=== PATIENT | female | born 1975 | race Caucasian/White ===

== ENCOUNTER → 2020-05-18 | Outpatient (CLI) | payer OTHER ==
--- NOTE | 2020-05-18 14:31 | CARD ---
MR#: [id number] Date of Study: 05/18/2020 Ordering Physician: SARAVANAN MINER, Referring Physician: SARAVANAN MINER, Tech: Fabby Cortes [facility] APPROVED REPORT EXAM: Two-dimensional and M-mode echocardiogram with Doppler and color Doppler. Other Information Quality : Good INDICATION Dyspnea 2D DIMENSIONS RVDd2.5 (2.9-3.5cm)Left Atrium(2D)3.4 (1.6-4.0cm) IVSd0.8 (0.7-1.1cm)Aortic Root(2D)2.1 (2.0-3.7cm) LVDd5.2 (3.9-5.9cm)LVOT Diameter2.0 (1.8-2.4cm) PWd0.9 (0.7-1.1cm)LVDs3.8 (2.5-4.0cm) FS (%) 27.3 %SV69.0 ml Aortic Valve AoV Peak Guille.133.8cm/sAoV VTI26.4cm AO Peak GR.7.2mmHgLVOT Peak Guille.113.7cm/s LVOT VTI 19.98cmAO Mean GR.4mmHg ROEL (VMAX)2.69ak7HLZ (VTI)2.45cm2 Mitral Valve MV E Mzrzkhds12.8cm/sMV DECEL [id number] MV A Xnidkpls69.9cm/sMV XXV53zx E/A Ratio1.6MVA (PHT)3.98cm2 TDI E/Lateral E'18.8E/Medial E'9.1 Pulmonary Vein S1 Ywwfumpv04.1cm/sD2 Njyvgdoh74.3cm/s LEFT VENTRICLE The left ventricle is normal size. There is normal left ventricular wall thickness. Left ventricle sy stolic function is low normal. The Ejection Fraction is 50-55%. There is normal LV segmental wall mot ion. The left ventricular diastolic function and filling is normal for age. RIGHT VENTRICLE The right ventricle is normal size. The right ventricular systolic function is normal. ATRIA The left atrium size is normal. The right atrium size is normal. The interatrial septum is intact wit h no evidence for an atrial septal defect or patent foramen ovale as noted on 2-D or Doppler imaging. AORTIC VALVE The aortic valve is normal in structure and function. Doppler and Color Flow revealed no significant aortic regurgitation. There is no significant aortic valvular stenosis. MITRAL VALVE The mitral valve is normal in structure and function. There is no evidence of mitral valve prolapse. There is no mitral valve stenosis. Doppler and Color-flow revealed trace to mild mitral regurgitation . TRICUSPID VALVE The tricuspid valve is normal in structure and function. Doppler and Color Flow revealed no tricuspid valve regurgitation noted. There is no tricuspid valve stenosis. PULMONIC VALVE The pulmonary valve is normal in structure and function. Doppler and Color Flow revealed trace pulmon ic valvular regurgitation. There is no pulmonic valvular stenosis. GREAT VESSELS The aortic root is normal in size. The ascending aorta is normal in size. The IVC is normal in size a nd collapses >50% with inspiration. PERICARDIAL EFFUSION There is no evidence of significant pericardial effusion. Critical Notification Critical Value: No <Conclusion> The left ventricle is normal size. Left ventricle systolic function is low normal. The Ejection Fraction is 50-55%. Doppler and Color Flow revealed no significant aortic regurgitation. There is no significant aortic valvular stenosis. Doppler and Color-flow revealed trace to mild mitral regurgitation. Doppler and Color Flow revealed no tricuspid valve regurgitation noted. Signed by : Saravanan Miner MD Electronically Approved : 05/18/2020 14:31:25
== END ==
LOC: ECHO 13:39
PROVIDERS: ATTEND Internal Medicine Cardiovascular Disease
DX: I34.0 Nonrheumatic mitral (valve) insufficiency (principal)
CPT/HCPCS: 93306

== ENCOUNTER 2020-07-01 21:49 | Emergency (ER) | payer OTHER ==
[~2020-07-01] VITALS: Ht 167.6 cm; Wt 77.2 kg
[2020-07-01 22:25] VITALS: BP 102/71
[2020-07-01] MEDS ORDERED: KETOROLAC 60 MG/2 ML VIAL. IM ONE (23:00)
[2020-07-01] MEDS ORDERED: NAPR-514 PO (23:27)
[2020-07-01] MEDS ORDERED: ORPH100T PO (23:27)
--- NOTE | 2020-07-01 23:28 | ED.ADGEN ---
Past Medical History Past Medical History: No Pertinent History Past Surgical History: No Surgical History Smoking Status: Former Smoker Alcohol Use: Rarely General Adult EDM: Chief Complaint: MECHANICAL FALL HPI: HPI: Patient is a 44 year old female, accompanied by her , who presents emergency department with complaints of right-sided low back pain after a fall from standing today. Patient reports she was seen at [facility] and had x-rays done. They told her that there were no fractures. While she was at the hospital they gave her some medicine and told her to take Tylenol and ibuprofen as needed for pain. Patient states that the pain has become worse she denies any saddle anesthesia, loss of bowel or bladder control, or radiation of the pain. She states that her low back hurts so bad she cannot get comfortable. She currently rates pain 10 out of 10 on the pain scale, she denies any numbness, tingling, or weakness of her lower extremities. She states that she has been taking Tylenol every 6 hours at home with no relief of her pain. Review of Systems: Review of Systems: Complete ROS is negative unless otherwise noted in HPI. Current Medications: Current Medications Medications (Trade) Dose Ordered Sig/Christopher Start Time Stop Time Status Last Admin Dose Admin Ketorolac Tromethamine (Toradol 30mg Vial) 30 mg 1X ONCE 07/01/20 23:30 07/01/20 23:31 Cancel Ketorolac Tromethamine (Toradol Im) 60 mg 1X ONCE 07/01/20 23:00 07/01/20 23:03 DC 07/01/20 23:10 60 MG Morphine Sulfate (Morphine Sulfate) 5 mg 1X ONCE 07/01/20 23:30 07/01/20 23:31 DC 07/01/20 23:10 5 MG Orphenadrine Citrate (Norflex) 60 mg 1X ONCE 07/01/20 23:30 07/01/20 23:31 DC 07/01/20 23:09 60 MG Allergies: Allergies: Allergies Coded Allergies Type Severity Reaction Last Updated Verified Iodine and Iodide Containing Produc Allergy Severe 07/01/20 Yes Sulfa (Sulfonamide Antibiotics) Allergy Intermediate 07/01/20 Yes amoxicillin Allergy Intermediate 07/01/20 Yes Physical Exam: PE: See Above Constitutional: Well developed, well nourished, no acute distress, non-toxic appearance. [] HENT: Normocephalic, atraumatic, bilateral external ears normal, nose normal. [] Eyes: PERRLA, EOMI, conjunctiva normal, no discharge. [] Neck: Normal range of motion, no stridor. [] Cardiovascular:Heart rate regular rhythm Lungs & Thorax: Respirations even and unlabored, no retractions, no respiratory distress Back: No bony tenderness, right lumbar paraspinal tenderness to palpation, spasm noted, negative straight leg lift Skin: Warm, dry, no erythema, no rash. [] Extremities: No cyanosis, ROM intact, no edema. [] Neurologic: Alert and oriented X 3, no focal deficits noted. [] Psychologic: Affect normal, judgement normal, mood normal. [] Current Patient Data: Vital Signs: Vital Signs Date Time Temp Pulse Resp B/P (MAP) Pulse Ox O2 Delivery O2 Flow Rate FiO2 07/01/20 23:10 98 Room Air 07/01/20 22:25 97.9 77 18 102/71 (81) 97.9 EKG: EKG: [] Heart Score: Risk Factors: Risk Factors: DM, Current or recent (<one month) smoker, HTN, HLP, family history of CAD, obesity. Risk Scores: Score 0 - 3: 2.5% MACE over next 6 weeks - Discharge Home Score 4 - 6: 20.3% MACE over next 6 weeks - Admit for Clinical Observation Score 7 - 10: 72.7% MACE over next 6 weeks - Early Invasive Strategies Radiology/Procedures: Radiology/Procedures: [] Course & Med Decision Making: Course & Med Decision Making Pertinent Labs and Imaging studies reviewed. (See chart for details) 44-year-old female presents emergency department with complaints of right low back pain after a fall from standing this morning. Patient was given 60 mg of IM Toradol, 60 mg of IM Norflex, and 5 mg of IM morphine. She reported some benefit from these medications prior to discharge. Prescriptions written for naproxen and orphenadrine. Patient was encouraged to apply ice to sore areas for the first 48 hours then apply heat or ice as needed for comfort. Activity as tolerated. Recommend follow-up with primary care doctor this week if symptoms persist, return to ER symptoms worsen. Patient verbalized an understanding of home care, medications, follow-up, and return to ED instructions and was in agreement with the plan of care. [] Bear Disclaimer: Bear Disclaimer: This electronic medical record was generated, in whole or in part, using a voice recognition dictation system. Departure Departure Impression: Primary Impression: Strain of lumbar paraspinal muscle Additional Impression: Acute low back pain without sciatica Disposition: 01 DC HOME SELF CARE/HOMELESS Condition: STABLE Referrals: LORRAINE AVILA (PCP) Patient Instructions: Low Back Strain with [facility] Additional Instructions: Fill the prescription(s) and use as directed. Apply ice to sore areas for 10 to 15 minutes every hour while awake to the night and tomorrow then apply ice or heat as needed for comfort. Activity as tolerated. Follow up with your primary care doctor this week if symptoms persist, return to the ER if symptoms worsen. Scripts Naproxen (NAPROXEN) 500 Mg Tablet 1 TAB PO BID PRN for PAIN for 10 Days, #20 TAB 0 Refills Prov: HOME OJEDA APRN 07/01/20 Orphenadrine Citrate (ORPHENADRINE CITRATE) 100 Mg Tablet.er 1 TAB PO BID PRN for PAIN for 10 Days, #20 TAB 0 Refills Prov: HOME OJEDA APRN 07/01/20 Problem Qualifiers Primary Impression: Strain of lumbar paraspinal muscle Encounter type: initial encounter Qualified Codes: S39.012A - Strain of muscle, fascia and tendon of lower back, initial encounter Additional Impression: Acute low back pain without sciatica Back pain laterality: right Qualified Codes: M54.5 - Low back pain HOME OJEDA APRN Jul 01, 2020 23:28
[2020-07-01] MEDS ORDERED: KETOROLAC 30 MG/ML VIAL. IV ONE (23:30)
[2020-07-01] MEDS ORDERED: ORPHENADRINE CITRATE 60 MG/2 ML VIAL. IM ONE (23:30)
[2020-07-01] MEDS ORDERED: MORPHINE SULFATE 10 MG/ML VIAL. IM ONE (23:30)
== END 2020-07-01 23:34 | disposition home or self-care (01) ==
LOC: ER 21:49
DX: S39.012A Strain of muscle, fascia and tendon of lower back, initial encounter (principal); Z87.891 Personal history of nicotine dependence; Z88.1 Allergy status to other antibiotic agents; Z88.2 Allergy status to sulfonamides; Z91.041 Radiographic dye allergy status; W18.39XA Other fall on same level, initial encounter; Y93.89 Activity, other specified; Y92.89 Other specified places as the place of occurrence of the external cause; Y99.8 Other external cause status
CPT/HCPCS: 96372; 99284; J1885; J2270; J2360

== ENCOUNTER → 2021-09-02 | Outpatient (CLI) | payer OTHER ==
[~2021-09-02] MED LIST: NAPR-514 PO; ORPH100T PO
== END ==
LOC: LAB 14:10
PROVIDERS: ATTEND Nurse Practitioner Family
DX: R93.89 Abnormal findings on diagnostic imaging of other specified body structures (principal); R53.1 Weakness
CPT/HCPCS: 36415; 82607; 82746; 83519; 84165; 84443; 86038; 86141; 86255; 84238

== ENCOUNTER 2021-09-18 07:45 | Outpatient (CLI) | payer OTHER ==
[~2021-09-18 07:45] MED LIST changes: +LIDOCAINE 1% Multi-Dose 20 ML VIAL. INJ ONE
[2021-09-18 08:45] VITALS: BP 99/57
[2021-09-18 09:00] VITALS: BP 95/57
[2021-09-18 09:15] VITALS: BP 96/64
[2021-09-18 09:30] VITALS: BP 92/60
--- NOTE | 2021-09-18 09:55 | NUR ---
Discharge Note: VICTOR MANUEL STOCKTON Discharge instructions and discharge home medications reviewed with Patient and a copy given. All questions have been answered and understanding verbalized. The following instructions and handouts were given: lumbar puncture Dressing to back clean and dry Patient discharged to Home or Self Care with Family Member via Wheelchair KATI KIMBALL Addendum: 09/18/21 at 0957 by FREEMAN WASHINGTON RN Amended: Links added.
--- NOTE | 2021-09-18 10:06 | RAD ---
FLUOROSCOPICALLY GUIDED LUMBAR PUNCTURE FOR CSF SAMPLING: Clinical History: Abnormal MRI, left-sided weakness. Procedure: The relative benefits, risks and alternatives to the procedure were discussed and verbal and written informed consent was obtained. The patient was placed prone and slightly oblique on the fluoroscopic table and bony landmarks were u sed to plan for a lumbar puncture. The patient was carefully prepped and draped in a sterile fashion and with local anesthetic and sterile technique, a 22-gauge spinal needle was advanced at the L3 lev el. Clear CSF was seen and approximately 12 cc of clear fluid were aspirated and sent for testing. N eedle was removed with stylet in place. Hemostasis achieved. The procedure was well tolerated and the patient was sent to Recovery in good condition. Total fluoroscopy time for the procedure was 0.4 minutes. 0 fluoroscopic spot images. IMPRESSION: Fluoroscopic guided lumbar puncture. Electronically signed by: Eliseo June MD (09/18/2021 10:04 AM) [id number]
[2021-09-18 10:40] LABS: CSF PROTEIN 35.2 mg/dL (15.0-45.0)
[2021-09-18 10:46] LABS: CSF CLARITY CLEAR; CSF COLOR COLORLESS; CSF RBC COUNT 0 /cmm (Not Established); CSF WBC COUNT 0 /cmm (Not Established)
[2021-09-23 16:14] LABS: ALBUMIN,CSF 16 mg/dL (8-37); ALBUMIN,SERUM 4.1 g/dL (3.8-4.8); CSF IGG INDEX 0.5 (0.0-0.7); IGG,SERUM 1017 mg/dL (586-1602)
== END 2021-09-18 10:00 | disposition home or self-care (01) ==
LOC: RAD 07:45
PROVIDERS: ATTEND Nurse Practitioner Family
DX: R53.1 Weakness (principal); Z79.82 Long term (current) use of aspirin; Z79.899 Other long term (current) drug therapy; Z87.891 Personal history of nicotine dependence; Z98.890 Other specified postprocedural states; Z88.1 Allergy status to other antibiotic agents; Z88.2 Allergy status to sulfonamides; Z91.041 Radiographic dye allergy status; Z72.89 Other problems related to lifestyle
CPT/HCPCS: 36415; 62328; 82787; 82945; 83916; 84157; 87075; 87102; 87252; 89051; J3490; 62270

== ENCOUNTER 2021-09-20 19:35 | Observation (INO) | payer OTHER ==
[~2021-09-20] VITALS: Ht 160 cm; Wt 78.1 kg
[~2021-09-20 19:35] MED LIST changes: -LIDOCAINE 1% Multi-Dose 20 ML VIAL. INJ ONE
--- NOTE | 2021-09-20 20:57 | ED.ADGEN ---
Past Medical History Past Medical History: No Pertinent History Past Surgical History: Other Additional Past Surgical Histo: bilat leg fasciotmy Smoking Status: Former Smoker Alcohol Use: Rarely General Adult EDM: Chief Complaint: HEADACHE HPI: HPI: Patient is a 45 year old female coming in for headaches to worsen with the past 2 days. Patient had an LP done here 2 days ago to rule out MS. Patient recently had a stroke and has some ataxia deficits which she says are "99% improved". Patient says she has a headache that is around the top of her head. Has had some photophobia, denies any vision changes nausea or vomiting. Patient denies any history of headaches. States that headache is better with laying down and worse with sitting up. Denies any fever chills, neck rigidity, hearing loss or tinnitus Review of Systems: Review of Systems: All other systems within normal limits except for as noted in the HPI Current Medications: Current Medications Medications (Trade) Dose Ordered Sig/Christopher Start Time Stop Time Status Last Admin Dose Admin Caffeine Citrated (Caffeine Citrate) 500 mg 1X ONCE 09/20/21 21:00 09/20/21 21:03 DC Caffeine Citrated 60 mg/Dextrose 103 ml @ 206 mls/hr 1X ONCE 09/20/21 21:30 09/20/21 21:59 DC 09/20/21 21:33 206 MLS/HR Fentanyl Citrate (Fentanyl 2ml Vial) 75 mcg 1X ONCE 09/20/21 21:30 09/20/21 21:31 DC 09/20/21 22:12 75 MCG Sodium Chloride 1,000 ml @ 1,000 mls/hr 1X ONCE 09/20/21 21:00 09/20/21 21:59 DC 09/20/21 22:14 1,000 MLS/HR Allergies: Allergies: Allergies Coded Allergies Type Severity Reaction Last Updated Verified Iodinated Contrast Media Allergy Severe 09/20/21 Yes Sulfa (Sulfonamide Antibiotics) Allergy Intermediate 07/01/20 Yes amoxicillin Allergy Intermediate 07/01/20 Yes Physical Exam: PE: Constitutional: Well developed, well nourished, no acute distress, non-toxic appearance. [] HENT: Normocephalic, atraumatic, bilateral external ears normal, nose normal. [] Eyes: PERRLA, conjunctiva normal, no discharge. [Extraocular intact] Neck: No rigidity, supple, no stridor. [] Cardiovascular: Regular rate and rhythm, brisk cap refill [] Lungs & Thorax: Non labored symmetric respirations, no tachypnea or respiratory distress [] Abdomen: Soft, nondistended. Skin: Warm, dry, no erythema, no rash. [] Back: Unremarkable Extremities: No deformities, range of motion grossly intact, no lower extremity edema [] Neurologic: Alert and oriented X 3, no focal deficits noted. [] Psychologic: Affect normal, judgement normal, mood normal. [] Current Patient Data: Labs: Laboratory Tests Test 09/20/21 21:20 White Blood Count 9.7 x10^3/uL (4.0-11.0) Red Blood Count 4.21 x10^6/uL (3.50-5.40) Hemoglobin 12.6 g/dL (12.0-15.5) Hematocrit 37.6 % (36.0-47.0) Mean Corpuscular Volume 89 fL (79-100) Mean Corpuscular Hemoglobin 30 pg (25-35) Mean Corpuscular Hemoglobin Concent 34 g/dL (31-37) Red Cell Distribution Width 13.1 % (11.5-14.5) Platelet Count 219 x10^3/uL (140-400) Neutrophils (%) (Auto) 78 % (31-73) H Lymphocytes (%) (Auto) 14 % (24-48) L Monocytes (%) (Auto) 6 % (0-9) Eosinophils (%) (Auto) 1 % (0-3) Basophils (%) (Auto) 1 % (0-3) Neutrophils # (Auto) 7.5 x10^3/uL (1.8-7.7) Lymphocytes # (Auto) 1.4 x10^3/uL (1.0-4.8) Monocytes # (Auto) 0.6 x10^3/uL (0.0-1.1) Eosinophils # (Auto) 0.1 x10^3/uL (0.0-0.7) Basophils # (Auto) 0.1 x10^3/uL (0.0-0.2) Sodium Level 140 mmol/L (136-145) Potassium Level 3.9 mmol/L (3.5-5.1) Chloride Level 105 mmol/L (98-107) Carbon Dioxide Level 25 mmol/L (21-32) Anion Gap 10 (6-14) Blood Urea Nitrogen 14 mg/dL (7-20) Creatinine 0.9 mg/dL (0.6-1.0) Estimated GFR (Cockcroft-Gault) 68.3 BUN/Creatinine Ratio 16 (6-20) Glucose Level 103 mg/dL (70-99) H Calcium Level 8.5 mg/dL (8.5-10.1) Total Bilirubin 0.1 mg/dL (0.2-1.0) L Aspartate Amino Transferase (AST) 14 U/L (15-37) L Alanine Aminotransferase (ALT) 35 U/L (14-59) Alkaline Phosphatase 101 U/L (46-116) Total Protein 7.2 g/dL (6.4-8.2) Albumin 3.4 g/dL (3.4-5.0) Albumin/Globulin Ratio 0.9 (1.0-1.7) L Laboratory Tests 09/20/21 21:20 Laboratory Tests 09/20/21 21:20 Vital Signs: Vital Signs Date Time Temp Pulse Resp B/P (MAP) Pulse Ox O2 Delivery O2 Flow Rate FiO2 09/20/21 22:25 64 20 99 09/20/21 22:12 Room Air 09/20/21 20:23 97.9 108/72 (84) 97.9 EKG: EKG: [] Heart Score: C/O Chest Pain: No Risk Factors: Risk Factors: DM, Current or recent (<one month) smoker, HTN, HLP, family history of CAD, obesity. Risk Scores: Score 0 - 3: 2.5% MACE over next 6 weeks - Discharge Home Score 4 - 6: 20.3% MACE over next 6 weeks - Admit for Clinical Observation Score 7 - 10: 72.7% MACE over next 6 weeks - Early Invasive Strategies Radiology/Procedures: Radiology/Procedures: [facility] [address] [place] [address] IMAGING REPORT Signed PATIENT: VICTOR MANUEL STOCKTON ACCOUNT: [id number] : 1975 LOCATION: ER AGE: 45 SEX: F EXAM STATUS: REG ER ORD. PHYSICIAN: AYANNA ORELLANA MD REASON: headache PROCEDURE: CT HEAD WO CONTRAST CT HEAD/BRAIN WO History: Reason: headache / Spl. Instructions: / History: Comparison: None. Technique: Noncontrast CT imaging was performed of the head. Exposure: One or more of the following individualized dose reduction techniques were utilized for this examination: 1. Automated exposure control 2. Adjustment of the mA and/or kV according to patient size 3. Use of iterative reconstruction technique. Findings: No intracranial hemorrhage. No mass effect. No hydrocephalus. Extra-axial spaces are unremarkable. Imaged orbits are unremarkable. Imaged paranasal sinuses and mastoid air cells are clear. No acute calvarial fracture. Impression: 1. No acute intracranial abnormality. Electronically signed by: Rowdy Gonzalez DO (09/20/2021 11:50 PM) [facility] DICTATED and SIGNED BY: ROWDY GONZALEZ DO DATE: 09/20/21 [id number] [] Course & Med Decision Making: Course & Med Decision Making Pertinent Labs and Imaging studies reviewed. (See chart for details) Patient feeling better but still having worsening headache when standing up. Discussed with MOTION AND TIME STUDY TEACHER on-call, recommends having patient lay supine and they will see the patient with anesthesia in the morning to evaluate whether a blood patch is necessary. [] Dragon Disclaimer: Bear Disclaimer: This electronic medical record was generated, in whole or in part, using a voice recognition dictation system. Departure Departure Impression: Primary Impression: Post lumbar puncture headache Disposition: ADMITTED INPATIENT Admitting Physician: HIMNael Condition: STABLE Referrals: HEMAL MORRIS (PCP) AYANNA ORELLANA MD Sep 20, 2021 20:57
[2021-09-20] MEDS ORDERED: CAFFEINE CITRATE 60 MG/3 ML IVP ONE (21:00)
[2021-09-20] MEDS ORDERED: IV NORMAL SALINE 1000ML BAG 1,000 ML IV ONE (21:00)
[2021-09-20] MEDS ORDERED: fentaNYL PF VIAL 100 MCG/2 ML VIAL IVP ONE (21:30)
[2021-09-20] MEDS ORDERED: CAFFEINE CITRATE IVP ONE (21:30)
[2021-09-20] MEDS ORDERED: DEXTROSE 5% IVP ONE (21:30)
[2021-09-20 21:34] LABS: BASO # 0.1 x10^3/uL (0.0-0.2); BASO % 1 % (0-3); EOS # 0.1 x10^3/uL (0.0-0.7); EOS % 1 % (0-3); HEMATOCRIT 37.6 % (36.0-47.0); HEMOGLOBIN 12.6 g/dL (12.0-15.5); LYMPH # 1.4 x10^3/uL (1.0-4.8); LYMPH % 14 % (24-48); MEAN CORPUSCULAR HEMOGLOBIN 30 pg (25-35); MEAN CORPUSCULAR HGB CONC 34 g/dL (31-37); MEAN CORPUSCULAR VOLUME 89 fL (79-100); MONO # 0.6 x10^3/uL (0.0-1.1); MONO % 6 % (0-9); NEUT # 7.5 x10^3/uL (1.8-7.7); NEUT % 78 % (31-73); PLATELET COUNT 219 x10^3/uL (140-400); RED BLOOD COUNT 4.21 x10^6/uL (3.50-5.40); RED CELL DISTRIBUTION WIDTH 13.1 % (11.5-14.5); WHITE BLOOD COUNT 9.7 x10^3/uL (4.0-11.0)
[2021-09-20 21:43] LABS: CALCIUM 8.5 mg/dL (8.5-10.1); CREATININE 0.9 mg/dL (0.6-1.0); GFR 68.3; POTASSIUM 3.9 mmol/L (3.5-5.1)
[2021-09-20 21:49] LABS: ALBUMIN 3.4 g/dL (3.4-5.0); ALBUMIN/GLOBULIN RATIO 0.9 (1.0-1.7); TOTAL BILIRUBIN 0.1 mg/dL (0.2-1.0); TOTAL PROTEIN 7.2 g/dL (6.4-8.2)
--- NOTE | 2021-09-20 23:52 | RAD ---
CT HEAD/BRAIN WO History: Reason: headache / Spl. Instructions: / History: Comparison: None. Technique: Noncontrast CT imaging was performed of the head. Exposure: One or more of the following individualized dose reduction techniques were utilized for thi s examination: 1. Automated exposure control 2. Adjustment of the mA and/or kV according to patient size 3. Use of iterative reconstruction technique. Findings: No intracranial hemorrhage. No mass effect. No hydrocephalus. Extra-axial spaces are unremarkable. Imaged orbits are unremarkable. Imaged paranasal sinuses and mastoid air cells are clear. No acute ca lvarial fracture. Impression: 1. No acute intracranial abnormality. Electronically signed by: Rowdy Gonzalez DO (09/20/2021 11:50 PM) [facility]
[2021-09-21] MEDS ORDERED: ACETAMINOPHEN 325 MG TABLET. PO PRN ×2 (01:15→09:45)
[2021-09-21] MEDS ORDERED: fentaNYL PF VIAL 100 MCG/2 ML VIAL IVP PRN (01:15)
[2021-09-21] MEDS ORDERED: ONDANSETRON PF 4 MG/2 ML VIAL. IVP PRN ×2 (01:15→09:45)
[2021-09-21 02:40] VITALS: BP 118/72
[2021-09-21] MEDS: IV NORMAL SALINE 1000ML BAG 1,000 ML IV SCH ×2 (03:10→11:15)
[2021-09-21] MEDS ORDERED: OMEP40CA7 PO (04:11)
[2021-09-21] MEDS ORDERED: ASPI-630 PO (04:11)
[2021-09-21] MEDS ORDERED: ATOR40TA59 PO (04:11)
[2021-09-21 07:00] VITALS: BP 116/58
--- NOTE | 2021-09-21 09:39 | PDOC ---
Provider Note Date of Service: DATE: 09/21/21 TIME: 09:27 Provider Note Anesthesia note: Pt evaluated at the request of Dr. Yates for possible dural puncture headache. Ms. Dias had a diagnostic lumbar puncture on 09/18/21 and has been exhibiting symptoms consistent with a post dural puncture headache. Options for treatment, either conservative management or epidural blood patch were explained to her. At this time, she has elected for conservative m anagement of increased fluid intake, caffeine ingestion, and bedrest. She was advised to contact her health care provider if symptoms don't improve over the the next 24-48 hours. Justifications for Admission Other Justification MELIZA STONER CRNA Sep 21, 2021 09:39
[2021-09-21] MEDS ORDERED: ZOLPIDEM 5 MG TABLET. PO PRN (09:45)
[2021-09-21] MEDS ORDERED: ELECTROLYTE (NON-ICU) PROTOCOL. MC PRN (09:45)
[2021-09-21] MEDS ORDERED: MORPHINE SULFATE 2 MG/ML INJ. IV PRN ×2 (09:45)
[2021-09-21] MEDS ORDERED: CALCIUM CARBONATE 500 MG TAB.CHEW PO PRN (09:45)
[2021-09-21] MEDS ORDERED: OXYC5CAP PO (10:49)
[2021-09-21] MEDS ORDERED: PANTOPRAZOLE 40 MG TABLET.DR. PO SCH (11:00)
[2021-09-21 11:25] VITALS: BP 105/63
--- NOTE | 2021-09-21 13:08 | NUR ---
pt discharged to home. taken out by wheelchair
[2021-09-21] MEDS ORDERED: ATORVASTATIN CALCIUM 40 MG TABLET. PO SCH (21:00)
[2021-09-21] MEDS ORDERED: SENNOSIDES/DOCUSATE 8.6/50MG TABLET. PO SCH (21:00)
--- NOTE | 2021-09-22 17:45 | PDOC1 ---
History and Physical Date of Service: DOS: September 21 late entry Chief Complaint: Chief Complain: Headache after LP History of Present Illness: HPI: Patient is a 45 year old female coming in for headaches to worsen with the past 2 days. Patient had an LP done here 2 days ago to rule out MS. Patient recently had a stroke and has some ataxia deficits which she says are "99% improved". Patient says she has a headache that is around the top of her head. Has had some photophobia, denies any vision changes nausea or vomiting. Patient denies any history of headaches. States that headache is better with laying down and worse with sitting up. Denies any fever chills, neck rigidity, hearing loss or tinnitus Past Medical/Surgical History: PMH/PSH: Current work-up for MS. Allergies: Allergies: Coded Allergies: Iodinated Contrast Media (Verified Allergy, Severe, 09/20/21) Sulfa (Sulfonamide Antibiotics) (Verified Allergy, Intermediate, 07/01/20) amoxicillin (Verified Allergy, Intermediate, 07/01/20) Family History: Family History: None known per patient Social History: Social History: Denies alcohol tobacco drug use Current Medications: Current Medications Current Medications Fentanyl Citrate (Fentanyl 2ml Vial) 75 mcg 1X ONCE IVP Last administered on 09/20/21at 22:12; Start 09/20/21 at 21:30; Stop 09/20/21 at 21:31; Status DC Caffeine Citrated (Caffeine Citrate) 500 mg 1X ONCE IVP ; Start 09/20/21 at 21:00; Stop 09/20/21 at 21:03; Status DC Sodium Chloride 1,000 ml @ 1,000 mls/hr 1X ONCE IV Last administered on 09/20/21at 22:14; Start 09/20/21 at 21:00; Stop 09/20/21 at 21:59; Status DC Caffeine Citrated 60 mg/Dextrose 103 ml @ 206 mls/hr 1X ONCE IVP Last administered on 09/20/21at 21:33; Start 09/20/21 at 21:30; Stop 09/20/21 at 21:59; Status DC Ondansetron HCl (Zofran) 4 mg PRN Q8HRS PRN IVP NAUSEA/VOMITING 1ST CHOICE; Start 09/21/21 at 01:15; Stop 09/21/21 at 09:35; Status DC Fentanyl Citrate (Fentanyl 2ml Vial) 50 mcg PRN Q1HR PRN IVP SEVERE PAIN 7-10 Last administered on 09/21/21at 03:10; Start 09/21/21 at 01:15; Stop 09/21/21 at 09:35; Status DC Sodium Chloride 1,000 ml @ 100 mls/hr Q10H IV Last administered on 09/21/21at 03:10; Start 09/21/21 at 01:15; Stop 09/21/21 at 13:11; Status DC Acetaminophen (Tylenol) 650 mg PRN Q4HRS PRN PO FEVER > 100.3'F; Start 09/21/21 at 01:15; Stop 09/21/21 at 09:35; Status DC Atorvastatin Calcium (Lipitor) 40 mg QHS PO ; Start 09/21/21 at 21:00; Stop 09/21/21 at 13:11; Status DC Pantoprazole Sodium (Protonix) 40 mg DAILYAC PO Last administered on 09/21/21at 11:02; Start 09/21/21 at 11:00; Stop 09/21/21 at 13:11; Status DC Ondansetron HCl (Zofran) 4 mg PRN Q6HRS PRN IVP NAUSEA/VOMITING; Start 09/21/21 at 09:45; Stop 09/21/21 at 13:11; Status DC Calcium Carbonate/ Glycine (Tums) 500 mg PRN Q3HRS PRN PO UPSET STOMACH; Start 09/21/21 at 09:45; Stop 09/21/21 at 13:11; Status DC Zolpidem Tartrate (Ambien) 5 mg PRN QHS PRN PO INSOMNIA, MAY REPEAT IN 1HR; Start 09/21/21 at 09:45; Stop 09/21/21 at 13:11; Status DC Info (Non-Icu Electrolyte Protocol) 1 ea PRN DAILY PRN MC SEE COMMENTS; Start 09/21/21 at 09:45; Stop 09/21/21 at 13:11; Status DC Morphine Sulfate (Morphine Sulfate) 1 mg PRN Q1HR PRN IV MODERATE PAIN; Start 09/21/21 at 09:45; Stop 09/21/21 at 13:11; Status DC Morphine Sulfate (Morphine Sulfate) 2 mg PRN Q1HR PRN IV SEVERE PAIN; Start 09/21/21 at 09:45; Stop 09/21/21 at 13:11; Status DC Acetaminophen (Tylenol) 650 mg PRN Q6HRS PRN PO Headaches, Temp > 101.5F Last administered on 09/21/21at 11:23; Start 09/21/21 at 09:45; Stop 09/21/21 at 13:11; Status DC Senna/Docusate Sodium (Senna Plus) 1 tab BID PO ; Start 09/21/21 at 21:00; Stop 09/21/21 at 13:11; Status DC Active Scripts Active Oxycodone Hcl 5 Mg Capsule 5 Mg PO PRN Q6HRS PRN 10 Days Naproxen 500 Mg Tablet 1 Tab PO BID PRN 10 Days Orphenadrine Citrate 100 Mg Tablet.er 1 Tab PO BID PRN 10 Days Reported Atorvastatin Calcium 40 Mg Tablet 1 Tab PO DAILY Omeprazole 40 Mg Capsule.dr 1 Cap PO DAILY Aspirin 81 Mg Tab.chew 1 Tab PO DAILY ROS: Review of Systems Review of System Unless noted in HPI 14 point review of systems is Physical Exam: Vital Signs: Vital Signs Date Time Temp Pulse Resp B/P (MAP) Pulse Ox O2 Delivery O2 Flow Rate FiO2 09/21/21 11:25 98.0 57 20 105/63 (77) 98 Room Air 98.0 Physcial Exam: GEN: No apparent distress. Alert and oriented HEENT: Normal cephalic, atraumatic, external auditory canals are patent EYES: Extraocular muscles are intact, pupil are equally round and reactive to light and accommodation MUSCULOSKELETAL: Well developed , well nourished, good range of motion ENDOCRINE: No thyromegaly was palpated LYMPHATICS: No cervical chain or axillary nodes were noted HEMATOPOIETIC: No bruising NECK: Supple, no JVD, no thyromegaly was noted LUNGS: Clear to auscultation in all lung lamb without rhonchi or wheezing HEART: RRR, S!, S2 present. Peripheral pulses intact, no obvious murmurs noted ABDOMEN: Soft, nontender. Positive bowel sounds, no organomegaly, normal bow el sounds EXTREMITIES: Without clubbing, cyanosis, or edema. Pedal pulses intact. Negative Homans sign NEUROLOGIC: Normal speech and tone. A&O x 3, moves all extremities, no obvious focal deficits PSYCHIATRIC: Normal affect, normal mood. Stable SKIN: No ulcerations or rashes, good skin turgor, no jaundice VASCULAR: Good capillary refill, neurovascular bundle appears to be intact Labs: Labs: Laboratory Tests Test 09/20/21 21:20 White Blood Count 9.7 x10^3/uL (4.0-11.0) Red Blood Count 4.21 x10^6/uL (3.50-5.40) Hemoglobin 12.6 g/dL (12.0-15.5) Hematocrit 37.6 % (36.0-47.0) Mean Corpuscular Volume 89 fL (79-100) Mean Corpuscular Hemoglobin 30 pg (25-35) Mean Corpuscular Hemoglobin Concent 34 g/dL (31-37) Red Cell Distribution Width 13.1 % (11.5-14.5) Platelet Count 219 x10^3/uL (140-400) Neutrophils (%) (Auto) 78 % (31-73) Lymphocytes (%) (Auto) 14 % (24-48) Monocytes (%) (Auto) 6 % (0-9) Eosinophils (%) (Auto) 1 % (0-3) Basophils (%) (Auto) 1 % (0-3) Neutrophils # (Auto) 7.5 x10^3/uL (1.8-7.7) Lymphocytes # (Auto) 1.4 x10^3/uL (1.0-4.8) Monocytes # (Auto) 0.6 x10^3/uL (0.0-1.1) Eosinophils # (Auto) 0.1 x10^3/uL (0.0-0.7) Basophils # (Auto) 0.1 x10^3/uL (0.0-0.2) Sodium Level 140 mmol/L (136-145) Potassium Level 3.9 mmol/L (3.5-5.1) Chloride Level 105 mmol/L (98-107) Carbon Dioxide Level 25 mmol/L (21-32) Anion Gap 10 (6-14) Blood Urea Nitrogen 14 mg/dL (7-20) Creatinine 0.9 mg/dL (0.6-1.0) Estimated GFR (Cockcroft-Gault) 68.3 BUN/Creatinine Ratio 16 (6-20) Glucose Level 103 mg/dL (70-99) Calcium Level 8.5 mg/dL (8.5-10.1) Total Bilirubin 0.1 mg/dL (0.2-1.0) Aspartate Amino Transf (AST/SGOT) 14 U/L (15-37) Alanine Aminotransferase (ALT/SGPT) 35 U/L (14-59) Alkaline Phosphatase 101 U/L (46-116) Total Protein 7.2 g/dL (6.4-8.2) Albumin 3.4 g/dL (3.4-5.0) Albumin/Globulin Ratio 0.9 (1.0-1.7) Assessment/Plan Assessment/Plan Post LP headache -LP 2 days ago has worsening headache after; currently undergoing work-up for MS. -Hemodynamically stable -Anesthesia eval for blood patch. -Symptomatic treatment -Discussed with bedside RN Justifications for Admission Other Justification ILA EASLEY MD Sep 22, 2021 17:45
--- NOTE | 2021-09-22 17:47 | PDOC3 ---
[facility]-Dis[facility] Summary Date of Admission: Date of Admission: Sep 21, 2021 Date of Discharge: Date of Discharge: Sep 21, 2021 Admission Diagnosis: Admitting Diagnosis: Post lumbar puncture headache Hospital Course: Hospital Course: Patient is a 45 year old female coming in for headaches to worsen with the past 2 days. Patient had an LP done here 2 days ago to rule out MS. Patient recently had a stroke and has some ataxia deficits which she says are "99% improved". Patient says she has a headache that is around the top of her head. Has had some photophobia, denies any vision changes nausea or vomiting. Patient denies any history of headaches. States that headache is better with laying down and worse with sitting up. Denies any fever chills, neck rigidity, hearing loss or tinnitus Patient was offered blood patch from anesthesia and she declined opting for conservative measures. When I evaluated her again she said headache improving. Appropriate for discharge today. Instructions given for home care. Greater than 30 minutes spent on discharge. Disposition: Disposition/Orders: D/C to Home Activity: Activity: Resume previous activity Diet: Diet: Regular Medications: Home Meds Active Scripts Oxycodone Hcl (OXYCODONE HCL) 5 Mg Capsule, 5 MG PO PRN Q6HRS PRN for PAIN for 10 Days, #20 TAB 0 Refills Prov:ILA EASLEY MD 09/21/21 Naproxen (NAPROXEN) 500 Mg Tablet, 1 TAB PO BID PRN for PAIN for 10 Days, #20 TAB 0 Refills Prov:[employer] 07/01/20 Orphenadrine Citrate (ORPHENADRINE CITRATE) 100 Mg Tablet.er, 1 TAB PO BID PRN for PAIN for 10 Days, #20 TAB 0 Refills Prov:HOME [employer] 07/01/20 Reported Medications Atorvastatin Calcium (ATORVASTATIN CALCIUM) 40 Mg Tablet, 1 TAB PO DAILY for Cholesterol, #30 TAB 5 Refills 09/21/21 Omeprazole (OMEPRAZOLE) 40 Mg Capsule.dr, 1 CAP PO DAILY for Heartburn, #30 CAP 3 Refills 09/21/21 Aspirin (ASPIRIN) 81 Mg Tab.chew, 1 TAB PO DAILY for Stroke , #30 TAB 3 Refills 09/21/21 Scheduled Aspirin (Aspirin), 1 TAB PO DAILY, (Reported) Atorvastatin Calcium (Atorvastatin Calcium), 1 TAB PO DAILY, (Reported) Omeprazole (Omeprazole), 1 CAP PO DAILY, (Reported) Scheduled PRN Naproxen (Naproxen), 1 TAB PO BID PRN for PAIN Orphenadrine Citrate (Orphenadrine Citrate), 1 TAB PO BID PRN for PAIN Oxycodone Hcl (Oxycodone Hcl), 5 MG PO PRN Q6HRS PRN for PAIN Justicifation of Admission Dx: Justifications for Admission: Justification of Admission Dx: Yes (post LP headache) ILA EASLEY MD Sep 22, 2021 17:47
== END 2021-09-21 13:10 | disposition home or self-care (01) ==
LOC: ER 19:35 → 4 NORTH 09-21 00:30
PROVIDERS: ADMIT Internal Medicine; ATTEND Internal Medicine
DX: R51.9 Headache, unspecified (principal); G97.1 Other reaction to spinal and lumbar puncture; Z86.73 Personal history of transient ischemic attack (TIA), and cerebral infarction without residual deficits; Z87.891 Personal history of nicotine dependence; Z79.899 Other long term (current) drug therapy; Z98.890 Other specified postprocedural states; Z79.82 Long term (current) use of aspirin; Y84.4 Aspiration of fluid as the cause of abnormal reaction of the patient, or of later complication, without mention of misadventure at the time of the procedure
CPT/HCPCS: 36415; 70450; 80053; 85025; 96361; 96365; 96366; 96375; 96376; 99284; G0378; J0706; J3010; J7030; J7060; G0379